=== PATIENT | female | born 1955 | race Caucasian/White ===

== ENCOUNTER 2016-04-08 10:44 | Emergency (ER) | payer BC ==
[2016-04-08 11:02] VITALS: BP 139/58
--- NOTE | 2016-04-08 11:13 | UC ---
Eye Complaint HPI - HPI Summary HPI Summary: complaint of itchy red eyes L> R that started this morning had thick purulent discharge crusting on eyelids grandson with pink eye and slept in bed with her denies vision changes, denies eye pain, denies photophobia and headache - History of Current Complaint Chief Complaint: UCEye Stated Complaint: EYE ISSUE Time Seen by Provider: 04/08/16 11:02 Hx Obtained From: Patient - Allergies/Home Medications Allergies/Adverse Reactions: Allergies Allergy/AdvReac Type Severity Reaction Status Date / Time Acetaminophen Allergy EDGY, Verified 09/14/15 10:56 [From Hydrocodone AGITATED W/Acetaminophen] Codeine Allergy DEPRESSION Verified 09/14/15 10:56 Hydrocodone Allergy EDGY, Verified 09/14/15 10:56 [From Hydrocodone AGITATED W/Acetaminophen] Latex Allergy Itching Verified 04/08/16 10:54 ADHESIVE Allergy BLISTER, Uncoded 09/14/15 10:56 ITCHY Home Medications: Home Medications Antibiotic Eye Drop 04/08/16 [History] Chlorpheniramine-Dm [Coricidin Hbp Cough & Col 4-30 mg] 1 tab PO PRN 04/08/16 [ History] PMH/Surg Hx/FS Hx/Imm Hx Previously Healthy: Yes Endocrine History Of: Denies: Diabetes Cardiovascular History Of: Reports: Cardiac Disorders - PVC's, Hypertension - CONTROL WITH MED Respiratory History Of: Denies: COPD, Asthma Cancer History Of: Denies: Breast Cancer - Surgical History Surgical History: Yes Surgery Procedure, Year, and Place: 1986 & 1990 CSECTION, [facility] – [place]. 1999 HYSTERECTOMY WITH BILATERAL SALPINGECTOMY, [facility] – [place] - Family History Known Family History: Positive: Unknown Negative: Cardiac Disease, Hypertension, Diabetes - Social History Occupation: Employed Full-time Lives: With Family Alcohol Use: Rare Substance Use Type: None Smoking Status (MU): Former Smoker Type: Cigarettes Amount Used/How Often: SOCIALLY Have You Smoked in the Last Year: No When Did the Patient Quit Smoking/Using Tobacco: YEARS AGO Household Exposure Type: Cigarettes Review of Systems Constitutional: Negative Skin: Negative Eyes: Drainage, Eye Redness ENT: Negative Respiratory: Negative Cardiovascular: Negative Gastrointestinal: Negative Genitourinary: Negative Motor: Negative Neurovascular: Negative Musculoskeletal: Negative Neurological: Negative Psychological: Negative All Other Systems Reviewed And Are Negative: Yes Physical Exam Triage Information Reviewed: Yes Appearance: No Pain Distress, Well-Nourished Vital Signs: Initial Vital Signs Temp 99.4 F 04/08/16 10:56 Pulse 69 04/08/16 10:56 Resp 16 04/08/16 10:56 BP 139/58 04/08/16 10:56 Pulse Ox 98 04/08/16 10:56 Vital Signs Reviewed: Yes Eyes: Positive: Conjunctiva Inflamed - both eyes, Discharge ENT: Positive: Pharynx normal, Nasal congestion, TMs normal Neck: Positive: No Lymphadenopathy Respiratory: Positive: Lungs clear, Normal breath sounds, No respiratory distress Cardiovascular: Positive: RRR, No Murmur Abdomen Description: Positive: Nontender, Soft Bowel Sounds: Positive: Present Musculoskeletal: Positive: No Edema Neurological: Positive: Alert Psychological Exam: Normal Skin Exam: Normal Eye Complaint Course/Dx - Differential Dx/Diagnosis Differential Diagnosis/HQI/PQRI: Conjunctivitis, Corneal Abrasion Provider Diagnoses: conjunctivitis bilateral Discharge - Discharge Plan Condition: Stable Disposition: HOME Prescriptions: Tobramycin (Ophth) [Tobrex] 0.3 % OP Q4HR #1 [email or web address] Patient Education Materials: Conjunctivitis (ED) Forms: *Work Release Referrals: Juvenal Sandy MD [Primary Care Provider] - Additional Instructions: CONJUNCTIVITIS What is Conjunctivitis? Conjunctivitis is redness and swelling of the conjunctiva, the thin transparent layer that lines the inner eyelid and covers the white part of the eye. The three main types of conjunctivitis are infectious, allergic, and chemical. The infectious type, commonly called "pink eye," is caused by a contagious virus or by bacteria. Your body's allergies to pollen, cosmetics, animals or fabrics often bring on allergic conjunctivitis. Irritants like air pollution, noxious fumes and chlorine in swimming pools may produce the chemical form. Symptoms Might Include: More tearing Eye pain Redness in the eyes Gritty feeling in the eyes Itching of the eye Blurred vision Sensitivity to light Crusts that form on the eyelid overnight Treatment Recommendations: Use eye drops or ointment as directed. Do not rub or touch your eyes. Wash your hands frequently. Use cool compresses to relieve pain and itching. Prevention: Do not share eye make-up. Replace eye make-up frequently. Do not share towels, washcloths, etc. Do not share eye drops. Disinfect and handle contact lenses properly. Call Your Doctor or Return Here IF: Your symptoms worsen or do not improve in 3 to 4 days. You have problems with, or loss of, your vision. You have a significant increase in pain. You have any new symptoms that worry you.
== END 2016-04-08 11:26 | disposition home or self-care (01) ==
LOC: UCEAST 10:44
DX: H10.33 Unspecified acute conjunctivitis, bilateral (principal); Z88.6 Allergy status to analgesic agent; Z88.5 Allergy status to narcotic agent; I10 Essential (primary) hypertension; Z87.891 Personal history of nicotine dependence
CPT/HCPCS: 99212; G0463

== ENCOUNTER 2016-06-08 17:55 | Emergency (ER) | payer BC ==
[2016-06-08 19:15] VITALS: BP 148/54
--- NOTE | 2016-06-08 20:37 | UC ---
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 reaching to pick something off the floor is difficult used a heating pad with some relief last night taken tramadol for pain with some relief chronic back pain for the last 20 years denies fever, unintentional weight loss, incontinence - History of Current Complaint Chief Complaint: UCBackPain Stated Complaint: BACK COMPLAINT Time Seen by Provider: 06/08/16 20:28 Hx Obtained From: Patient Character: Aching, Spasmodic Aggravating: Movement, Bending Alleviating: Rest, Heat - Allergies/Home Medications Allergies/Adverse Reactions: Allergies Allergy/AdvReac Type Severity Reaction Status Date / Time Acetaminophen Allergy EDGY, Verified 06/08/16 19:16 [From Hydrocodone AGITATED W/Acetaminophen] Codeine Allergy DEPRESSION Verified 06/08/16 19:16 Hydrocodone Allergy EDGY, Verified 06/08/16 19:16 [From Hydrocodone AGITATED W/Acetaminophen] Latex Allergy Itching Verified 06/08/16 19:16 ADHESIVE Allergy BLISTER, Uncoded 06/08/16 19:16 ITCHY PMH/Surg Hx/FS Hx/Imm Hx Previously Healthy: Yes - chronic back pain Endocrine History Of: Denies: Diabetes, Thyroid Disease Cardiovascular History Of: Reports: Cardiac Disorders - PVC's, Hypertension - CONTROL WITH MED Respiratory History Of: Denies: COPD, Asthma GI/ History Of: Denies: Ulcer Cancer History Of: Denies: Breast Cancer - Surgical History Surgical History: Yes Surgery Procedure, Year, and Place: 1986 & [place] [facility] [place] [facility] [place] - Family History Known Family History: Positive: Unknown Negative: Cardiac Disease, Hypertension, Diabetes - Social History Alcohol Use: Rare Substance Use Type: None Smoking Status (MU): Former Smoker Type: Cigarettes Amount Used/How Often: SOCIALLY Have You Smoked in the Last Year: No When Did the Patient Quit Smoking/Using Tobacco: YEARS AGO Household Exposure Type: Cigarettes Review of Systems Constitutional: Negative Skin: Negative Eyes: Negative ENT: Negative Respiratory: Negative Cardiovascular: Negative Gastrointestinal: Negative Genitourinary: Negative Motor: Negative Neurovascular: Negative Musculoskeletal: Other: - back pain Neurological: Negative Psychological: Negative All Other Systems Reviewed And Are Negative: Yes Physical Exam Triage Information Reviewed: Yes Appearance: No Pain Distress, Well-Nourished Vital Signs: Initial Vital Signs Temp 98.2 F 06/08/16 19:09 Pulse 68 06/08/16 19:09 Resp 12 06/08/16 19:09 BP 148/54 06/08/16 19:09 Pulse Ox 99 06/08/16 19:09 Vital Signs Reviewed: Yes Eyes: Positive: Conjunctiva Clear ENT: Positive: Pharynx normal, TMs normal Neck: Positive: No Lymphadenopathy Respiratory: Positive: Lungs clear, Normal breath sounds, No respiratory distress Cardiovascular: Positive: RRR, No Murmur, Pulses Normal Abdomen Description: Positive: Nontender, Soft Bowel Sounds: Positive: Present Musculoskeletal: Positive: Other: - Spine have no noted deformities or signs of inflammation. Curvature of thoracic, and lumbar spine are within normal limits. Bony features of shoulders and hips are of equal height bilaterally. Posture is upright, and gait is smooth and normal. Spinous processes of T1-L5 palpable, midline, and non-tender; No step-offs. Back muscles paraspinal tenderness btween shoulder blades. Flexion, extension, and rotation of the remaining spinal column is within normal limits. Patient cannot flex forward d /t pain pain. Lateral bending causes no discomfort when bending to the right and left side. Neurological Exam: Normal Neurological: Positive: Other: - DTR intact negative SLR bilaterally Psychological Exam: Normal Skin Exam: Normal Back Pain Course/Dx - Course Course Of Treatment: exam completed. exacerbation fo chronic back pain-pt not interested in imaging d/t knwn injury in the past. will start muscle relaxer and followup with PCP - Differential Dx/Diagnosis Differential Diagnosis/HQI/PQRI: Herniated Disc, Strain, Sprain Provider Diagnoses: chronic back pain Discharge - Discharge Plan Condition: Stable Disposition: HOME Prescriptions: Carisoprodol TAB* [Soma TAB*] 350 mg PO TID PRN #9 tab MDD 3 PRN Reason: Spasms - Muscle Patient Education Materials: Back Pain (ED), Chronic Back Pain (ED) Referrals: Juvenal Sandy MD [Primary Care Provider] - Additional Instructions: Start Soma as directed. Do not drink alcohol or drive while taking Soma Please consider physical therapy for further evaluation and treatment. Take ibuprofen for fever or pain. Increase fluids and rest. Please review your discharge instructions. If your symptoms do not improve please call your primary care provider or return to urgent care. Your blood pressure is elevated. Please contact your primary care provider within 1 day -4 weeks for further evaluation.
[2016-06-08] MEDS ORDERED: Carisoprodol TAB* 350 MG PO ONE (21:02)
== END 2016-06-08 21:15 | disposition home or self-care (01) ==
LOC: UCEAST 17:55
DX: M54.6 Pain in thoracic spine (principal); I49.3 Ventricular premature depolarization; I10 Essential (primary) hypertension; Z88.6 Allergy status to analgesic agent; Z88.5 Allergy status to narcotic agent; Z87.891 Personal history of nicotine dependence
CPT/HCPCS: 99212; A9270-GY; G0463